=== PATIENT | female | born 1990 | race Caucasian/White ===

== ENCOUNTER 2018-02-26 21:45 | Inpatient (IN) | payer OTHER, BC ==
[2018-02-26] MEDS: morphine 4 MG/ML VIAL IV (22:56)
[2018-02-26] MEDS: SOD CHLORIDE 0.9% 1,000 ML IV (22:57)
[2018-02-26] MEDS: ONDANSETRON 4 MG INJ IV (22:57)
[2018-02-26 23:28] LABS: ADD MAN DIFF? NO
[2018-02-26 23:31] LABS: BASOPHIL # 0.1 10^3/ul (0.0-0.1); BASOPHILS % 0.6 % (0.0-2.0); EOSINOPHILS # 0.4 10^3/ul (0.0-0.5); HEMATOCRIT 33.9 % (37.0-47.0); HEMOGLOBIN 11.4 g/dl (12.0-16.0); LYMPHOCYTES # 3.6 10^3/ul (0.8-2.9); LYMPHOCYTES % 29.9 % (15.0-51.0); MEAN CORPUSCULAR HEMOGLOBIN 26.8 pg (29.0-33.0); MEAN CORPUSCULAR HGB CONC 33.6 g/dl (32.0-37.0); MEAN CORPUSCULAR VOLUME 79.6 fl (82.0-101.0); MEAN PLATELET VOLUME 9.5 fl (7.4-10.4); MONOCYTE # 0.7 10^3/ul (0.3-0.9); MONOCYTES % 5.8 % (0.0-11.0); NEUTROPHIL # 7.2 10^3/ul (1.6-7.5); NEUTROPHILS % 60.1 % (39.0-77.0); PLATELET COUNT 391 10^3/UL (140-415); RED BLOOD COUNT 4.26 10^6/ul (4.20-5.40); RED CELL DISTRIBUTION WIDTH 13.7 % (11.5-14.5)
[2018-02-26 23:53] LABS: ALANINE AMINOTRANSFERASE 53 IU/L (13-69); ALBUMIN 4.7 g/dl (3.3-4.9); ALBUMIN/GLOBULIN RATIO 1.27; ALKALINE PHOSPHATASE 92 IU/L (42-121); ANION GAP 19 (8-16); ASPARTATE AMINO TRANSFERASE 37 IU/L (15-46); BILIRUBIN,INDIRECT 0.2 mg/dl (0-1.1); BILIRUBIN,TOTAL 0.2 mg/dl (0.2-1.3); BLOOD UREA NITROGEN 10 mg/dl (7-20); CALCIUM 9.1 mg/dl (8.4-10.2); CARBON DIOXIDE 22 mmol/L (21-31); CHLORIDE 102 mmol/L (97-110); CREATININE 0.61 mg/dl (0.44-1.00); GLUCOSE 99 mg/dl (70-220); LIPASE 88 U/L (23-300); POTASSIUM 3.8 mmol/L (3.5-5.1); SODIUM 139 mmol/L (135-144); TOTAL PROTEIN 8.4 g/dl (6.1-8.1)
[2018-02-27] LABS: ADD UMIC YES; UR ASCORBIC ACID NEGATIVE (NEGATIVE); UR BILIRUBIN (Dip) NEGATIVE (NEGATIVE); UR BLOOD (Dip) NEGATIVE (NEGATIVE); UR CLARITY CLEAR (CLEAR); UR COLOR STRAW (YELLOW); UR GLUCOSE (Dip) NEGATIVE (NEGATIVE); UR KETONES (Dip) NEGATIVE (NEGATIVE); UR LEUKOCYTE ESTERASE (Dip) TRACE Leu/ul (NEGATIVE); UR NITRITE (Dip) NEGATIVE (NEGATIVE); UR RBC 1 /HPF (0-5); UR SPECIFIC GRAVITY (Dip) 1.003 (1.003-1.030); UR TOTAL PROTEIN (Dip) NEGATIVE (NEGATIVE); UR UROBILINOGEN (Dip) NEGATIVE (NEGATIVE); UR WBC 1 /HPF (0-5)
[2018-02-27] MEDS: IOHEXOL 300MG/ML 150 ML BTL (00:27)
[2018-02-27] MEDS: SOD CHLORIDE 0.9% 100 ML (00:27)
[2018-02-27] MEDS: KETOROLAC 30 MG INJ IV (01:34)
[2018-02-27] MEDS: morphine 4 MG/ML VIAL IV (05:49)
[2018-02-27] MEDS ORDERED: ROPIVACAINE 0.5 % 30 ML VIAL (09:25)
[2018-02-27] MEDS ORDERED: PROPOFOL 20 ML (09:25)
[2018-02-27] MEDS ORDERED: MIDAZOLAM 1 MG/ML 2 ML INJ ×2 (09:25→11:14)
[2018-02-27] MEDS ORDERED: ONDANSETRON 4 MG INJ ×2 (09:25→11:48)
[2018-02-27] MEDS ORDERED: METOCLOPRAMIDE 10 MG INJ (09:25)
[2018-02-27] MEDS ORDERED: NEOSTIGMINE 3 MG/3 ML SYRINGE (09:25)
[2018-02-27] MEDS ORDERED: ROCURONIUM 50 MG INJ (09:25)
[2018-02-27] MEDS ORDERED: KETOROLAC 30 MG INJ (09:25)
[2018-02-27] MEDS ORDERED: CEFAZOLIN 1 GM INJ (09:49)
[2018-02-27] MEDS ORDERED: MEPERIDINE 25 MG INJ IV (10:30)
[2018-02-27] MEDS ORDERED: DIPHENHYDRAMINE 50 MG INJ IV (10:30)
[2018-02-27] MEDS ORDERED: HYDROmorphONE (0.2 MG/ML) 10ML SYG IV ×2 (10:30→11:14)
[2018-02-27] MEDS ORDERED: GLYCOPYRROLATE 0.4 MG INJ (11:01)
[2018-02-27] MEDS ORDERED: FENTAnyl 50 MCG/ML VIAL (11:08)
[2018-02-27] MEDS: HYDROmorphONE (0.2 MG/ML) 10ML SYG IV ×3 (11:29→12:03)
[2018-02-27] MEDS: MIDAZOLAM 1 MG/ML 2 ML INJ IV (11:30)
[2018-02-27] MEDS: ONDANSETRON 4 MG INJ IV (11:50)
[2018-02-27] MEDS: IBUPROFEN 600 MG TAB PO (13:44)
[2018-02-27] MEDS: OXYCODONE/ACETAMINOPHEN (5/325) TAB PO (19:28)
[2018-02-28] MEDS: OXYCODONE/ACETAMINOPHEN (5/325) TAB PO ×6 (01:31→20:07)
[2018-02-28] MEDS: IBUPROFEN 600 MG TAB PO (11:41)
[2018-02-28] MEDS: ONDANSETRON 4 MG INJ IV ×2 (12:39→20:08)
[2018-02-28] MEDS ORDERED: GENTAMICIN IV PER PHARMACY XX (13:00)
[2018-02-28] MEDS ORDERED: OXYCODONE/ACETAMINOPHEN (5/325) TAB PO (15:00)
[2018-02-28] MEDS: HYDROmorphONE 0.5 MG/0.5 ML SYG IV ×3 (15:51→22:41)
[2018-02-28] MEDS: GENTAMICIN 360 MG in DEXTROSE 5% 100 ML IVPB (16:43)
[2018-02-28 17:28] LABS: ADD UMIC YES; UR ASCORBIC ACID NEGATIVE (NEGATIVE); UR BACTERIA FEW /HPF (NONE SEEN); UR BILIRUBIN (Dip) NEGATIVE (NEGATIVE); UR BLOOD (Dip) 2+ mg/dL (NEGATIVE); UR CLARITY CLEAR (CLEAR); UR COLOR STRAW (YELLOW); UR GLUCOSE (Dip) NEGATIVE (NEGATIVE); UR KETONES (Dip) NEGATIVE (NEGATIVE); UR LEUKOCYTE ESTERASE (Dip) NEGATIVE Leu/ul (NEGATIVE); UR NITRITE (Dip) NEGATIVE (NEGATIVE); UR RBC 1 /HPF (0-5); UR SPECIFIC GRAVITY (Dip) 1.006 (1.003-1.030); UR SQUAMOUS EPITHELIAL CELL FEW /HPF (FEW); UR TOTAL PROTEIN (Dip) NEGATIVE (NEGATIVE); UR UROBILINOGEN (Dip) NEGATIVE (NEGATIVE); UR WBC 1 /HPF (0-5)
[2018-02-28] MEDS: CLINDAMYCIN 900 MG/D5W (PMX) 50 ML IVPB (18:38)
[2018-02-28] MEDS: DOCUSATE SODIUM 100 MG CAP PO (20:54)
[2018-03-01] MEDS: CLINDAMYCIN 900 MG/D5W (PMX) 50 ML IVPB ×4 (00:35→18:07)
[2018-03-01] MEDS: OXYCODONE/ACETAMINOPHEN (5/325) TAB PO ×3 (00:49→10:36)
[2018-03-01] MEDS ORDERED: DIPHENHYDRAMINE 25 MG CAP PO (01:00)
[2018-03-01] MEDS: HYDROmorphONE 0.5 MG/0.5 ML SYG IV ×6 (02:15→19:16)
[2018-03-01] MEDS: IBUPROFEN 600 MG TAB PO (04:37)
[2018-03-01] MEDS: ONDANSETRON 4 MG INJ IV ×3 (05:02→18:07)
[2018-03-01 05:43] LABS: GENTAMICIN,RANDOM 1.1 ug/ml
[2018-03-01] MEDS: DOCUSATE SODIUM 100 MG CAP PO ×2 (09:14→21:27)
[2018-03-01] MEDS ORDERED: KETOROLAC 30 MG INJ IV (16:00)
[2018-03-01] MEDS: KETOROLAC 30 MG INJ IV ×2 (16:08→22:10)
[2018-03-01] MEDS: GENTAMICIN 360 MG in DEXTROSE 5% 100 ML IVPB (16:11)
[2018-03-01 17:46] LABS: ADD MAN DIFF? NO
[2018-03-01 17:49] LABS: BASOPHILS % 0.6 % (0.0-2.0); EOSINOPHILS # 0.4 10^3/ul (0.0-0.5); EOSINOPHILS % 5.2 % (0.0-7.0); HEMATOCRIT 30.3 % (37.0-47.0); HEMOGLOBIN 10.2 g/dl (12.0-16.0); LYMPHOCYTES # 2.2 10^3/ul (0.8-2.9); LYMPHOCYTES % 31.2 % (15.0-51.0); MEAN CORPUSCULAR HEMOGLOBIN 27.6 pg (29.0-33.0); MEAN CORPUSCULAR HGB CONC 33.7 g/dl (32.0-37.0); MEAN CORPUSCULAR VOLUME 82.1 fl (82.0-101.0); MEAN PLATELET VOLUME 9.2 fl (7.4-10.4); MONOCYTE # 0.5 10^3/ul (0.3-0.9); MONOCYTES % 7.2 % (0.0-11.0); NEUTROPHIL # 3.9 10^3/ul (1.6-7.5); NEUTROPHILS % 55.5 % (39.0-77.0); PLATELET COUNT 316 10^3/UL (140-415); RED BLOOD COUNT 3.69 10^6/ul (4.20-5.40); RED CELL DISTRIBUTION WIDTH 13.2 % (11.5-14.5)
[2018-03-01 18:15] LABS: ALANINE AMINOTRANSFERASE 62 IU/L (13-69); ALBUMIN 3.6 g/dl (3.3-4.9); ALBUMIN/GLOBULIN RATIO 1.02; ALKALINE PHOSPHATASE 66 IU/L (42-121); ANION GAP 13 (8-16); ASPARTATE AMINO TRANSFERASE 35 IU/L (15-46); BLOOD UREA NITROGEN 13 mg/dl (7-20); CALCIUM 8.6 mg/dl (8.4-10.2); CARBON DIOXIDE 29 mmol/L (21-31); CHLORIDE 102 mmol/L (97-110); CREATININE 0.82 mg/dl (0.44-1.00); GLUCOSE 102 mg/dl (70-220); POTASSIUM 4.2 mmol/L (3.5-5.1); SODIUM 140 mmol/L (135-144); TOTAL PROTEIN 7.1 g/dl (6.1-8.1)
[2018-03-02] MEDS: CLINDAMYCIN 900 MG/D5W (PMX) 50 ML IVPB ×3 (00:06→12:41)
[2018-03-02 03:00] LABS: ADD UMIC YES; UR ASCORBIC ACID NEGATIVE (NEGATIVE); UR BILIRUBIN (Dip) NEGATIVE (NEGATIVE); UR BLOOD (Dip) 1+ mg/dL (NEGATIVE); UR CLARITY CLEAR (CLEAR); UR COLOR STRAW (YELLOW); UR GLUCOSE (Dip) NEGATIVE (NEGATIVE); UR KETONES (Dip) NEGATIVE (NEGATIVE); UR LEUKOCYTE ESTERASE (Dip) NEGATIVE Leu/ul (NEGATIVE); UR NITRITE (Dip) NEGATIVE (NEGATIVE); UR RBC 1 /HPF (0-5); UR SPECIFIC GRAVITY (Dip) 1.008 (1.003-1.030); UR SQUAMOUS EPITHELIAL CELL FEW /HPF (FEW); UR TOTAL PROTEIN (Dip) NEGATIVE (NEGATIVE); UR UROBILINOGEN (Dip) NEGATIVE (NEGATIVE); UR WBC 1 /HPF (0-5)
[2018-03-02] MEDS: KETOROLAC 30 MG INJ IV ×2 (04:49→14:37)
[2018-03-02 06:01] LABS: BLOOD UREA NITROGEN 15 mg/dl (7-20)
[2018-03-02 06:01] LABS: CREATININE 0.84 mg/dl (0.44-1.00)
[2018-03-02] MEDS: ONDANSETRON 4 MG INJ IV (07:49)
[2018-03-02] MEDS: DOCUSATE SODIUM 100 MG CAP PO (07:49)
[2018-03-02] MEDS: OXYCODONE/ACETAMINOPHEN (5/325) TAB PO ×2 (07:50→12:43)
[2018-03-02] MEDS: HYDROmorphONE 0.5 MG/0.5 ML SYG IV (10:54)
[2018-03-02] MEDS: GENTAMICIN 360 MG in DEXTROSE 5% 100 ML IVPB (16:21)
== END 2018-03-02 18:20 | disposition home or self-care (01) | DRG 743 ==
LOC: MS1 02-27 13:08 → FTE 21:45 → MS1 02-27 11:26 → FTE 02-27 13:08 → MS1 02-27 13:08 → FTE 02-27 11:26 → MS1 02-27 11:26
PROC: 0UB14ZZ Excision of Left Ovary, Percutaneous Endoscopic Approach (ICD-10-PCS; principal; 2018-02-27 09:30)
PROC: 0UN14ZZ Release Left Ovary, Percutaneous Endoscopic Approach (ICD-10-PCS; 2018-02-27 09:30)
PROC: 0UPD7HZ Removal of Contraceptive Device from Uterus and Cervix, Via Natural or Artificial Opening (ICD-10-PCS; 2018-02-27 09:30)
DX: N83.512 Torsion of left ovary and ovarian pedicle (principal); N83.202 Unspecified ovarian cyst, left side; E66.9 Obesity, unspecified; Z68.35 Body mass index [BMI] 35.0-35.9, adult
CPT/HCPCS: 74177; 76830; 76856; 80053; 80170; 81001; 81025; 82565; 83690; 84520; 85025; 87591; 88104; 88300; 88305

== ENCOUNTER 2019-01-11 18:46 | Emergency (ER) | payer SELFPAY, OTHER | END 2019-01-11 23:22 | disposition left against medical advice (07) | LOC: FTE 18:46 | DX: Z53.21 Procedure and treatment not carried out due to patient leaving prior to being seen by health care provider (principal) ==

== ENCOUNTER 2019-01-12 06:43 | Emergency (ER) | payer MEDICAID ==
[2019-01-12] MEDS: ONDANSETRON 4 MG INJ IV (07:28)
[2019-01-12] MEDS: morphine 4 MG/ML VIAL IV (07:28)
[2019-01-12 07:29] LABS: ADD MAN DIFF? NO
[2019-01-12 07:39] LABS: ADD UMIC NO; BASOPHIL # 0.1 10^3/ul (0.0-0.1); BASOPHILS % 0.6 % (0.0-2.0); EOSINOPHILS # 0.3 10^3/ul (0.0-0.5); EOSINOPHILS % 3.6 % (0.0-7.0); HEMATOCRIT 36.6 % (37.0-47.0); HEMOGLOBIN 12.2 g/dl (12.0-16.0); LYMPHOCYTES # 2.9 10^3/ul (0.8-2.9); LYMPHOCYTES % 36.7 % (15.0-51.0); MEAN CORPUSCULAR HGB CONC 33.3 g/dl (32.0-37.0); MEAN CORPUSCULAR VOLUME 83.9 fl (82.0-101.0); MEAN PLATELET VOLUME 9.7 fl (7.4-10.4); MONOCYTE # 0.6 10^3/ul (0.3-0.9); MONOCYTES % 7.6 % (0.0-11.0); NEUTROPHILS % 51.4 % (39.0-77.0); PLATELET COUNT 363 10^3/UL (140-415); RED BLOOD COUNT 4.36 10^6/ul (4.20-5.40); RED CELL DISTRIBUTION WIDTH 12.5 % (11.5-14.5); UR ASCORBIC ACID NEGATIVE (NEGATIVE); UR BACTERIA FEW /HPF (NONE SEEN); UR BILIRUBIN (Dip) NEGATIVE (NEGATIVE); UR BLOOD (Dip) NEGATIVE (NEGATIVE); UR CLARITY SLIGHTLY CLOUDY (CLEAR); UR COLOR STRAW (YELLOW); UR GLUCOSE (Dip) NEGATIVE (NEGATIVE); UR KETONES (Dip) NEGATIVE (NEGATIVE); UR LEUKOCYTE ESTERASE (Dip) NEGATIVE Leu/ul (NEGATIVE); UR NITRITE (Dip) NEGATIVE (NEGATIVE); UR RBC 0 /HPF (0-5); UR SPECIFIC GRAVITY (Dip) 1.017 (1.003-1.030); UR SQUAMOUS EPITHELIAL CELL FEW /HPF (FEW); UR TOTAL PROTEIN (Dip) NEGATIVE (NEGATIVE); UR UROBILINOGEN (Dip) NEGATIVE (NEGATIVE); UR WBC 3 /HPF (0-5)
[2019-01-12 07:39] LABS: WHITE BLOOD COUNT 7.8 10^3/ul (4.8-10.8)
[2019-01-12 08:03] LABS: ALANINE AMINOTRANSFERASE 21 IU/L (13-69); ALBUMIN 4.2 g/dl (3.3-4.9); ALBUMIN/GLOBULIN RATIO 1.31; ALKALINE PHOSPHATASE 70 IU/L (42-121); ANION GAP 9 (5-13); ASPARTATE AMINO TRANSFERASE 25 IU/L (15-46); BILIRUBIN,INDIRECT 0.1 mg/dl (0-1.1); BILIRUBIN,TOTAL 0.1 mg/dl (0.2-1.3); BLOOD UREA NITROGEN 18 mg/dl (7-20); CALCIUM 9.5 mg/dl (8.4-10.2); CARBON DIOXIDE 26 mmol/L (21-31); CHLORIDE 107 mmol/L (97-110); CREATININE 0.66 mg/dl (0.44-1.00); Estimated GFR > 60 mL/min (>60); GLUCOSE 105 mg/dl (70-220); LIPASE 159 U/L (23-300); POTASSIUM 4.1 mmol/L (3.5-5.1); SODIUM 142 mmol/L (135-144); TOTAL PROTEIN 7.4 g/dl (6.1-8.1)
[2019-01-12] MEDS: HYDROmorphONE 0.5 MG/0.5 ML SYG IV ×3 (09:16→13:28)
[2019-01-12] MEDS: KETOROLAC 30 MG INJ IV (14:28)
== END 2019-01-12 14:45 | disposition home or self-care (01) ==
LOC: FTE 06:43
DX: R10.30 Lower abdominal pain, unspecified (principal); R10.2 Pelvic and perineal pain
CPT/HCPCS: 36415; 72197; 74176; 76830; 76856; 80053; 81001; 81003; 81025; 83690; 85025; 96374; 96375; 96376; 99285-25

== ENCOUNTER 2019-07-15 18:12 | Emergency (ER) | payer SELFPAY, MEDICAID ==
[2019-07-15 19:16] LABS: ADD MAN DIFF? NO
[2019-07-15] MEDS: ONDANSETRON 4 MG INJ IV (19:16)
[2019-07-15] MEDS: morphine 4 MG/ML VIAL IV (19:17)
[2019-07-15] MEDS: SOD CHLORIDE 0.9% 1,000 ML IV (19:17)
[2019-07-15 19:19] LABS: BASOPHIL # 0.1 10^3/ul (0.0-0.1); BASOPHILS % 0.6 % (0.0-2.0); EOSINOPHILS # 0.3 10^3/ul (0.0-0.5); EOSINOPHILS % 3.3 % (0.0-7.0); HEMATOCRIT 34.9 % (37.0-47.0); HEMOGLOBIN 11.4 g/dl (12.0-16.0); LYMPHOCYTES # 3.3 10^3/ul (0.8-2.9); LYMPHOCYTES % 33.2 % (15.0-51.0); MEAN CORPUSCULAR HEMOGLOBIN 27.1 pg (29.0-33.0); MEAN CORPUSCULAR HGB CONC 32.7 g/dl (32.0-37.0); MEAN CORPUSCULAR VOLUME 83.1 fl (82.0-101.0); MEAN PLATELET VOLUME 9.2 fl (7.4-10.4); MONOCYTE # 0.6 10^3/ul (0.3-0.9); MONOCYTES % 5.6 % (0.0-11.0); NEUTROPHIL # 5.7 10^3/ul (1.6-7.5); NEUTROPHILS % 57.1 % (39.0-77.0); PLATELET COUNT 360 10^3/UL (140-415); RED CELL DISTRIBUTION WIDTH 12.9 % (11.5-14.5)
[2019-07-15 19:36] LABS: ALANINE AMINOTRANSFERASE 19 IU/L (13-69); ALBUMIN 4.2 g/dl (3.3-4.9); ALBUMIN/GLOBULIN RATIO 1.27; ALKALINE PHOSPHATASE 70 IU/L (42-121); ANION GAP 8 (5-13); ASPARTATE AMINO TRANSFERASE 19 IU/L (15-46); BILIRUBIN,INDIRECT 0.2 mg/dl (0-1.1); BILIRUBIN,TOTAL 0.2 mg/dl (0.2-1.3); BLOOD UREA NITROGEN 14 mg/dl (7-20); CALCIUM 9.2 mg/dl (8.4-10.2); CARBON DIOXIDE 25 mmol/L (21-31); CHLORIDE 104 mmol/L (97-110); CREATININE 0.67 mg/dl (0.44-1.00); Estimated GFR > 60 mL/min (>60); GLUCOSE 98 mg/dl (70-220); LIPASE 85 U/L (23-300); POTASSIUM 3.9 mmol/L (3.5-5.1); SODIUM 137 mmol/L (135-144); TOTAL PROTEIN 7.5 g/dl (6.1-8.1)
[2019-07-15 19:41] LABS: ADD UMIC YES; UR ASCORBIC ACID NEGATIVE (NEGATIVE); UR BILIRUBIN (Dip) NEGATIVE (NEGATIVE); UR BLOOD (Dip) NEGATIVE (NEGATIVE); UR CLARITY CLOUDY (CLEAR); UR COLOR YELLOW (YELLOW); UR GLUCOSE (Dip) NEGATIVE (NEGATIVE); UR KETONES (Dip) NEGATIVE (NEGATIVE); UR LEUKOCYTE ESTERASE (Dip) NEGATIVE Leu/ul (NEGATIVE); UR MUCUS FEW /HPF (NONE SEEN); UR NITRITE (Dip) NEGATIVE (NEGATIVE); UR RBC 0 /HPF (0-5); UR SPECIFIC GRAVITY (Dip) 1.013 (1.003-1.030); UR SQUAMOUS EPITHELIAL CELL FEW /HPF (FEW); UR TOTAL PROTEIN (Dip) NEGATIVE (NEGATIVE); UR UROBILINOGEN (Dip) NEGATIVE (NEGATIVE); UR WBC 1 /HPF (0-5)
== END 2019-07-15 21:49 | disposition home or self-care (01) ==
LOC: FTE 18:12
DX: N83.201 Unspecified ovarian cyst, right side (principal)
CPT/HCPCS: 36415; 74176; 76856; 80053; 81001; 81025; 83690; 85025; 96374; 96375; 99285-25